=== PATIENT | male | born 1945 | race Caucasian/White ===

== ENCOUNTER 2017-05-27 08:58 | Emergency (ER) | payer OTHER, MEDICARE ==
[2017-05-27 10:16] LABS: HEMOGLOBIN 13.4 g/dL (13.5-17.5); LYMPHOCYTES 17.3 % (15-50); MCH 30.2 pg (26.0-34.0); MCHC 33.5 g/dL (31.0-37.0); MCV 90.3 fL (80.0-100.0); MEAN PLATELET VOLUME 10.5 fL (7.4-10.4); NEUTROPHILS 63.3 % (40-80); RBC 4.43 10x6/uL (4.20-6.10); RDW 14.7 % (11.5-14.5); WBC 5.3 10x3/uL (4.8-10.8)
[2017-05-27 10:23] LABS: PLATELET COUNT 197 10x3/uL (130-400)
[2017-05-27 10:33] LABS: ALBUMIN 3.2 g/dL (3.4-5.0); ANION GAP 11.6 mmol/L (8-16); BILIRUBIN - TOTAL 0.5 mg/dL (0.2-1.3); CALCIUM 8.9 mg/dL (8.5-10.1); CARBON DIOXIDE 29.2 mmol/L (21.0-32.0); CREATININE - SERUM 1.5 mg/dL (0.6-1.3); POTASSIUM - SERUM 4.8 mmol/L (3.5-5.1); PROTEIN - SERUM 6.7 g/dL (6.4-8.2)
== END 2017-05-27 18:50 | disposition short-term general hospital (02) ==
LOC: D.ER 08:58
PROVIDERS: Family Medicine
DX: K63.89 Other specified diseases of intestine (principal); K59.00 Constipation, unspecified; N28.9 Disorder of kidney and ureter, unspecified; I10 Essential (primary) hypertension; Z85.47 Personal history of malignant neoplasm of testis; F17.200 Nicotine dependence, unspecified, uncomplicated

== ENCOUNTER 2017-06-09 21:39 | Emergency (ER) | payer OTHER, MEDICARE ==
[2017-06-09 23:22] LABS: BASOPHILS 0.1 % (0-2); EOSINOPHILS 0.4 % (0-7); HEMATOCRIT 29.7 % (42.0-54.0); HEMOGLOBIN 9.8 g/dL (13.5-17.5); IMMATURE GRANULOCYTES 0.5 % (0-5); LYMPHOCYTES 8.2 % (15-50); MCH 29.8 pg (26.0-34.0); MCV 90.3 fL (80.0-100.0); MEAN PLATELET VOLUME 9.2 fL (7.4-10.4); MONOCYTES 5.9 % (2-11); NEUTROPHILS 84.9 % (40-80); RBC 3.29 10x6/uL (4.20-6.10); RDW 14.5 % (11.5-14.5); WBC 15.6 10x3/uL (4.8-10.8)
[2017-06-09 23:24] LABS: PLATELET COUNT 462 10x3/uL (130-400)
[2017-06-09 23:24] LABS: APPEARANCE CLEAR (CLEAR); BILIRUBIN NEGATIVE (NEGATIVE); COLOR YELLOW (YELLOW); GLUCOSE NEGATIVE (NEGATIVE); KETONE MODERATE mg/dL (NEGATIVE); NITRITE NEGATIVE (NEGATIVE); PROTEIN 1+ mg/dL (NEGATIVE); SPECIFIC GRAVITY 1.015 (1.005-1.020); UROBILINOGEN NORMAL (NORMAL)
[2017-06-09 23:26] LABS: BACTERIA FEW /hpf (NONE SEEN); EPITHELIAL CELLS 0-5 /hpf (0-5); RED CELLS - URINE 0-5 /hpf (0-5); WHITE CELLS - URINE 0-5 /hpf (0-5)
[2017-06-09 23:38] LABS: ALBUMIN 1.8 g/dL (3.4-5.0); ALKALINE PHOSPHATASE 84 U/L (46-116); ALT (SGPT) 53 U/L (10-68); BILIRUBIN - TOTAL 0.45 mg/dL (0.2-1.3); CALC OSMOLALITY 268 mosm/kg (275-300); CALCIUM 8.3 mg/dL (8.5-10.1); CARBON DIOXIDE 25.6 mmol/L (21.0-32.0); CHLORIDE - SERUM 100 mmol/L (98-107); CREATININE - SERUM 0.9 mg/dL (0.6-1.3); POTASSIUM - SERUM 3.4 mmol/L (3.5-5.1); SODIUM 135 mmol/L (136-145); UREA NITROGEN 13 mg/dL (7-18); eGFR NON AFRICAN AMERICAN 88 mL/min (90-120)
[2017-06-09 23:41] LABS: GLUCOSE 85 mg/dL (74-106)
== END 2017-06-10 03:37 | disposition short-term general hospital (02) ==
LOC: D.ER 21:39
PROVIDERS: Nurse Practitioner Family
DX: L03.311 Cellulitis of abdominal wall (principal); R50.82 Postprocedural fever; Z85.47 Personal history of malignant neoplasm of testis; I10 Essential (primary) hypertension; F17.200 Nicotine dependence, unspecified, uncomplicated